=== PATIENT | male | born 1985 | race Caucasian/White ===

== ENCOUNTER 2017-02-23 17:58 | Emergency (ER) | payer OTHER ==
[~2017-02-23] VITALS: Ht 182.9 cm; Wt 122.5 kg
[~2017-02-23 17:58] MED LIST: ADVAIR 250-501 EACH IH; PROAIR HFA8.5 GM; ZANTAC 150MG T150 M1 PO; ZPAK PO
[2017-02-23 18:18] LABS: URINE BILIRUBIN NEGATIVE (Negative); URINE BLOOD NEGATIVE (Negative); URINE COLOR YELLOW; URINE GLUCOSE-RANDOM* NEGATIVE (Negative); URINE KETONES NEGATIVE (Negative); URINE NITRITE NEGATIVE (Negative); URINE PROTEIN (DIPSTICK) NEGATIVE (Negative); URINE SPECIFIC GRAVITY 1.025 (1.003-1.035); URINE UROBILINOGEN 0.2 E.U./dl (0.2-1.0)
[2017-02-23] MEDS ORDERED: NAPROSYN500 MG PO (19:35)
[2017-02-23] MEDS ORDERED: NORFLEX100 MG PO (19:35)
[2017-02-23 20:05] VITALS: BP 109/55
== END 2017-02-23 20:09 | disposition home or self-care (01) ==
LOC: ER 17:58
PROVIDERS: Physician Assistant
DX: M54.6 Pain in thoracic spine (principal); J45.909 Unspecified asthma, uncomplicated; K21.9 Gastro-esophageal reflux disease without esophagitis; Z88.0 Allergy status to penicillin

== ENCOUNTER 2017-03-06 18:59 | Emergency (ER) | payer OTHER ==
[~2017-03-06] VITALS: Ht 182.9 cm; Wt 122.5 kg
[~2017-03-06 18:59] MED LIST changes: +NAPROSYN500 MG PO; +NORFLEX100 MG PO
[2017-03-06 19:01] VITALS: BP 128/78
[2017-03-06] MEDS ORDERED: NORFLEX100 MG PO (19:35)
[2017-03-06] MEDS ORDERED: NORCO 5-325 TA1 EACH PO (19:35)
[2017-03-06] MEDS ORDERED: SENOKOT-S1 TA1 PO (19:35)
== END 2017-03-06 19:57 | disposition home or self-care (01) ==
LOC: ER 18:59
DX: S29.012A Strain of muscle and tendon of back wall of thorax, initial encounter (principal); K21.9 Gastro-esophageal reflux disease without esophagitis; J45.909 Unspecified asthma, uncomplicated; F10.99 Alcohol use, unspecified with unspecified alcohol-induced disorder; Z88.0 Allergy status to penicillin; V89.2XXA Person injured in unspecified motor-vehicle accident, traffic, initial encounter; Y93.89 Activity, other specified; Y92.89 Other specified places as the place of occurrence of the external cause; Y99.8 Other external cause status

== ENCOUNTER 2017-03-23 10:02 | Emergency (ER) | payer OTHER ==
[~2017-03-23] VITALS: Ht 182.9 cm; Wt 122.5 kg
[~2017-03-23 10:02] MED LIST changes: +NORCO 5-325 TA1 EACH PO; +SENOKOT-S1 TA1 PO
[2017-03-23 10:22] LABS: URINE BILIRUBIN NEGATIVE (Negative); URINE BLOOD NEGATIVE (Negative); URINE COLOR YELLOW; URINE GLUCOSE-RANDOM* NEGATIVE (Negative); URINE KETONES NEGATIVE (Negative); URINE NITRITE NEGATIVE (Negative); URINE PROTEIN (DIPSTICK) NEGATIVE (Negative); URINE UROBILINOGEN 0.2 E.U./dl (0.2-1.0)
[2017-03-23 10:37] LABS: ABSOLUTE NEUTROPHILS 5.5 thou/uL (1.4-8.2); BASOPHILS 0.6 % (0.0-2.0); EOSINOPHILS 5.2 % (0.0-3.0); HEMOGLOBIN 15.3 gm/dL (14.0-18.0); LYMPHOCYTES 19.4 % (24.0-44.0); MCH 30.9 pg (26.0-34.0); MCHC 35.6 g/dL (28.0-37.0); MCV 86.8 fL (80.0-100.0); MONOCYTES 7.3 % (1.0-8.0); PLATELET COUNT 211 thou/uL (150-400); POLYS 67.5 % (36.0-66.0); RBC 4.96 mil/uL (4.50-6.00); RDW 12.8 % (10.5-14.5); WBC 8.2 thou/uL (4.0-11.0)
[2017-03-23 10:40] LABS: MANUAL DIFF NO
[2017-03-23 10:43] LABS: CALCIUM 9.1 mg/dL (8.5-10.1); CREATININE 1.2 mg/dL (0.7-1.3); POTASSIUM 4.1 mmol/L (3.5-5.1)
[2017-03-23 10:48] LABS: ALBUMIN 3.6 g/dL (3.4-5.0); TOTAL BILIRUBIN 0.2 mg/dL (<0.1-1.0); TOTAL PROTEIN 7.7 g/dL (6.4-8.2)
[2017-03-23] MEDS ORDERED: NAPROSYN500 MG PO (11:22)
[2017-03-23] MEDS ORDERED: PHENERGAN 25 MG25 M1 PO (11:22)
[2017-03-23] MEDS ORDERED: NORFLEX100 MG PO (11:22)
[2017-03-23 11:49] VITALS: BP 114/71
== END 2017-03-23 12:52 | disposition home or self-care (01) ==
LOC: ER 10:02
PROVIDERS: Physician Assistant
DX: N28.1 Cyst of kidney, acquired (principal); R11.0 Nausea; K21.9 Gastro-esophageal reflux disease without esophagitis; J45.909 Unspecified asthma, uncomplicated; F10.99 Alcohol use, unspecified with unspecified alcohol-induced disorder; Z88.0 Allergy status to penicillin

== ENCOUNTER 2017-10-14 15:23 | Emergency (ER) | payer OTHER ==
[~2017-10-14] VITALS: Ht 182.9 cm; Wt 122.5 kg
[~2017-10-14 15:23] MED LIST changes: +PHENERGAN 25 MG25 M1 PO
[2017-10-14 16:24] VITALS: BP 133/78
[2017-10-14] MEDS ORDERED: TRAMADOL 50 MG50 MG PO (16:32)
[2017-10-14] MEDS ORDERED: FLEXERIL PO (16:32)
== END 2017-10-14 16:57 | disposition home or self-care (01) ==
LOC: ER 15:23
DX: M54.9 Dorsalgia, unspecified (principal); Z88.0 Allergy status to penicillin; J45.909 Unspecified asthma, uncomplicated; K21.9 Gastro-esophageal reflux disease without esophagitis

== ENCOUNTER 2017-10-16 10:48 | Emergency (ER) | payer OTHER ==
[~2017-10-16] VITALS: Ht 182.9 cm; Wt 122.5 kg
[~2017-10-16 10:48] MED LIST changes: +FLEXERIL PO; +TRAMADOL 50 MG50 MG PO
[2017-10-16 10:49] VITALS: BP 121/71
[2017-10-16] MEDS ORDERED: MOBIC15 MG PO (11:14)
== END 2017-10-16 11:53 | disposition home or self-care (01) ==
LOC: ER 10:48
DX: S40.021A Contusion of right upper arm, initial encounter (principal); S20.212A Contusion of left front wall of thorax, initial encounter; K21.9 Gastro-esophageal reflux disease without esophagitis; J45.909 Unspecified asthma, uncomplicated; Z88.0 Allergy status to penicillin; V89.2XXA Person injured in unspecified motor-vehicle accident, traffic, initial encounter; Y93.89 Activity, other specified; Y92.89 Other specified places as the place of occurrence of the external cause; Y99.8 Other external cause status

== ENCOUNTER 2018-02-20 18:45 | Emergency (ER) | payer OTHER ==
[~2018-02-20] VITALS: Ht 241.3 cm; Wt 107.5 kg
--- NOTE | ~2018-02-20 | HC ---
[facility] [place] [address] CONSULTATION Name: TIM PARK Room #: DEP Connie#: [id number] Admission: 02/20/18 Attend Phys: Discharge: 02/20/18 Date of : 89 Report #: [id number] THIS REPORT FOR: //name// CC: Frank Oviedo DATE OF SERVICE: 02/20/2018 HISTORY OF PRESENT ILLNESS: The patient is a 32-year-old male who I have been asked to see for further evaluation of food bolus obstruction and disimpaction. He has a history of eosinophilic esophagitis. MEDICATIONS: Include Prilosec. FAMILY HISTORY AND SOCIAL HISTORY: Noncontributory. REVIEW OF SYSTEMS: Negative for weight loss, weakness or fatigue. He denies head, eyes, ears, nose or throat complaints. Denies chest pain, chest palpitation, chest pressure, cough, shortness of breath, wheezing, genitourinary, musculoskeletal or neuropsychiatric complaints otherwise. PHYSICAL EXAMINATION: GENERAL: The patient is afebrile. VITAL SIGNS: Stable. HEENT: Nonicteric. NECK: No JVD, thyromegaly or bruits. CARDIOVASCULAR: Regular. LUNGS: Clear. ABDOMEN: Soft, nondistended, nontender, normoactive bowel sounds. No hepatosplenomegaly. No stigmata of chronic liver disease. No abnormal masses or bruits. EXTREMITIES: Not examined. NEUROLOGIC: Not performed. RECTAL: Deferred. PERTINENT LABORATORY DATA: None. IMPRESSION: 1. Food bolus obstruction. 2. Eosinophilic esophagitis. PLAN: [facility] [address] [place] [address] CONSULTATION Name: TIM PARK Room #: [facility] Connie#: [id number] Admission: 02/20/18 Attend Phys: Discharge: 02/20/18 Date of : 89 Report #: [id number] 1. EGD with food bolus disimpaction. 2. Further medications based on findings. <ELECTRONICALLY SIGNED> By: Frank Delgado MD 02/24/18 1013 [id number] [id number] Mike Ventura MD /nt
--- NOTE | ~2018-02-20 | O ---
[facility] [place] [address] OPERATIVE REPORT Name: TIM PARK Room #: DEP [facility]#: [id number] Admission: 02/20/18 Attend Phys: Discharge: 02/20/18 Date of : 89 Report #: [id number] THIS REPORT FOR: //name// CC: Frank Oviedo DATE OF SERVICE: 02/20/2018 SURGEON: Mike Ventura MD PREOPERATIVE DIAGNOSIS: Food bolus obstruction. POSTOPERATIVE DIAGNOSIS: See below. ANESTHESIA USED: See anesthesia notes. NAME OF THE PROCEDURE PERFORMED: EGD limited with food bolus disimpaction. INDICATION FOR THE PROCEDURE: As above. FINDINGS: 1. Food bolus impaction. 2. Incomplete upper endoscopy secondary to nonfasting status. DESCRIPTION OF THE PROCEDURE: The risks and benefits of the procedure were explained in detail prior to MAC anesthesia. Next, the patient was placed in left lateral decubitus position. The tip of the Olympus video endoscope was advanced into the oropharynx, esophagus into the distal aspect of the esophagus where a large food bolus was encountered. Using a Hawley retrieval net, the food bolus was removed. Findings consistent with eosinophilic esophagitis were present with mild narrowing throughout the entire esophagus and at the distal aspect. The rest of the endoscopy was not performed secondary to nonfasting status. The patient tolerated the procedure well and was discharged in recovery. IMPRESSION: 1. Food bolus impaction (removed). 2. Eosinophilic esophagitis. PLAN: 1. PPI daily. [facility] [address] [place] [address] OPERATIVE REPORT Name: TIM PARK Room #: DEP JUAN Rosales#: [id number] Admission: 02/20/18 Attend Phys: Discharge: 02/20/18 Date of : 89 Report #: [id number] 2. Pulmicort mix 1 with 5 b.i.d. as directed. 3. Follow up with Dr. Delgado in 1 to 2 weeks. <ELECTRONICALLY SIGNED> By: Frank Delgado MD 02/24/18 1013 2142 0034 Mike Ventura MD /nt
[~2018-02-20 18:45] MED LIST changes: +MOBIC15 MG PO
[2018-02-20] MEDS ORDERED: ADVAIR HFA 230M12 GM INH (19:06)
[2018-02-20 21:06] VITALS: BP 100/64
== END 2018-02-20 23:00 | disposition home or self-care (01) ==
LOC: ER 18:45
DX: R10.9 Unspecified abdominal pain (principal); R13.14 Dysphagia, pharyngoesophageal phase; K21.9 Gastro-esophageal reflux disease without esophagitis; J45.909 Unspecified asthma, uncomplicated
CPT/HCPCS: 62110; 62900

== ENCOUNTER 2018-03-21 12:39 | Emergency (ER) | payer OTHER ==
[~2018-03-21] VITALS: Ht 182.9 cm; Wt 104.3 kg
[~2018-03-21 12:39] MED LIST changes: +ADVAIR HFA 230M12 GM INH
[2018-03-21] MEDS ORDERED: TRAMADOL 50 MG50 MG PO (14:25)
[2018-03-21 14:39] VITALS: BP 127/75
== END 2018-03-21 14:43 | disposition home or self-care (01) ==
LOC: ER 12:39
DX: S46.912A Strain of unspecified muscle, fascia and tendon at shoulder and upper arm level, left arm, initial encounter (principal); K21.9 Gastro-esophageal reflux disease without esophagitis; J45.909 Unspecified asthma, uncomplicated; Z88.0 Allergy status to penicillin; Z88.5 Allergy status to narcotic agent; X58.XXXA Exposure to other specified factors, initial encounter; Y93.89 Activity, other specified; Y92.89 Other specified places as the place of occurrence of the external cause; Y99.8 Other external cause status

== ENCOUNTER 2018-08-15 08:55 | Emergency (ER) | payer OTHER ==
[~2018-08-15] VITALS: Ht 182.9 cm; Wt 108.9 kg
--- NOTE | ~2018-08-15 | EKG ---
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
[2018-08-15] MEDS ORDERED: VENTOLIN HFA 1818 GM INH (09:06)
[2018-08-15] MEDS ORDERED: BREO ELLIPTA 11 EACH INH (09:07)
[2018-08-15] MEDS ORDERED: PRILOSEC 20 MG20 MG PO (09:48)
[2018-08-15] MEDS ORDERED: TRAMADOL 50 MG50 MG PO (09:48)
[2018-08-15] MEDS ORDERED: PREDNISONE 20 M20 MG PO (09:48)
[2018-08-15 10:02] VITALS: BP 134/60
== END 2018-08-15 10:15 | disposition home or self-care (01) ==
LOC: ER 08:55
DX: M94.0 Chondrocostal junction syndrome [Tietze] (principal); K20.9 Esophagitis, unspecified; R13.10 Dysphagia, unspecified; K21.9 Gastro-esophageal reflux disease without esophagitis; J45.909 Unspecified asthma, uncomplicated; Z88.0 Allergy status to penicillin; Z88.8 Allergy status to other drugs, medicaments and biological substances

== ENCOUNTER 2020-06-05 08:40 | Emergency (ER) | payer OTHER ==
[~2020-06-05] VITALS: Ht 182.9 cm; Wt 111.1 kg
[~2020-06-05 08:40] MED LIST changes: +BREO ELLIPTA 11 EACH INH; +IBUPROFEN 600600 M1 PO; +PREDNISONE 20 M20 MG PO; +PRILOSEC 20 MG20 MG PO; +VENTOLIN HFA 1818 GM INH
[2020-06-05 09:35] LABS: ABSOLUTE NEUTROPHILS 5.6 thou/uL (1.4-8.2); BASOPHILS 0.8 % (0.0-2.0); EOSINOPHILS 6.5 % (0.0-3.0); HEMATOCRIT 43.9 % (42.0-52.0); HEMOGLOBIN 15.5 gm/dL (14.0-18.0); LYMPHOCYTES 16.8 % (24.0-44.0); MCH 31.5 pg (26.0-34.0); MCHC 35.2 g/dL (28.0-37.0); MCV 89.3 fL (80.0-100.0); MONOCYTES 7.1 % (1.0-8.0); PLATELET COUNT 198 thou/uL (150-400); POLYS 68.8 % (36.0-66.0); RBC 4.92 mil/uL (4.50-6.00); RDW 12.7 % (10.5-14.5); WBC 8.1 thou/uL (4.0-11.0)
[2020-06-05 09:42] LABS: CALCIUM 8.9 mg/dL (8.5-10.1); CREATININE 1.1 mg/dL (0.7-1.3); POTASSIUM 3.9 mmol/L (3.5-5.1)
[2020-06-05 10:20] VITALS: BP 118/68
--- NOTE | 2020-06-05 14:45 | EKG ---
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: DENILSON ITAFAVIOLA : 1985 Requested By: Gabriel Raphael Order Number: [id number] MD: Favian Ge Measurements Intervals [place] Rate: 62 P: 43 AL: 127 QRS: 32 QRSD: 90 T: 44 QT: 379 QTc: 385 Interpretive Statements Sinus rhythm RSR' in V1 or V2, probably normal variant ST elev, probable normal early repol pattern Compared to ECG 08/15/2018 09:17:02 Sinus bradycardia no longer present Electronically Signed On 06-05-2020 14:44:52 CDT by Favian Ge [email or web address] <ELECTRONICALLY SIGNED> By: Favian Ge MD, [facility] 06/05/20 1444 4 4 Favian Ge MD, [facility] /EPI
== END 2020-06-05 10:20 | disposition home or self-care (01) ==
LOC: ER 08:40
PROVIDERS: Emergency Medicine
DX: R00.2 Palpitations (principal); R53.83 Other fatigue; K21.9 Gastro-esophageal reflux disease without esophagitis; J45.909 Unspecified asthma, uncomplicated; E66.9 Obesity, unspecified; Z68.33 Body mass index [BMI] 33.0-33.9, adult; Z79.899 Other long term (current) drug therapy; Z88.0 Allergy status to penicillin; Z88.6 Allergy status to analgesic agent; Z88.8 Allergy status to other drugs, medicaments and biological substances

== ENCOUNTER 2020-09-26 11:08 | Emergency (ER) | payer OTHER ==
[~2020-09-26] VITALS: Ht 182.9 cm; Wt 117.9 kg
[2020-09-26 12:39] LABS: ABSOLUTE NEUTROPHILS 5.3 thou/uL (1.4-8.2); BASOPHILS 0.5 % (0.0-2.0); EOSINOPHILS 12.6 % (0.0-3.0); HEMATOCRIT 44.7 % (42.0-52.0); HEMOGLOBIN 15.6 gm/dL (14.0-18.0); LYMPHOCYTES 22.9 % (24.0-44.0); MCH 30.9 pg (26.0-34.0); MCHC 34.9 g/dL (28.0-37.0); MCV 88.6 fL (80.0-100.0); MONOCYTES 7.1 % (1.0-8.0); PLATELET COUNT 231 thou/uL (150-400); POLYS 56.9 % (36.0-66.0); RBC 5.05 mil/uL (4.50-6.00); RDW 12.5 % (10.5-14.5); WBC 9.3 thou/uL (4.0-11.0)
[2020-09-26 13:14] LABS: CALCIUM 9.9 mg/dL (8.5-10.1); CREATININE 1.3 mg/dL (0.7-1.3); POTASSIUM 4.5 mmol/L (3.5-5.1)
[2020-09-26 13:21] LABS: ALBUMIN 3.4 g/dL (3.4-5.0); TOTAL BILIRUBIN 0.3 mg/dL (0.2-1.0)
[2020-09-26] MEDS ORDERED: PREDNISONE 10 M10 M1 PO (14:23)
[2020-09-26] MEDS ORDERED: ZPAK PO (14:23)
[2020-09-26] MEDS ORDERED: ALBUTEROL2.5 MG/31 INH (15:39)
[2020-09-26 15:49] VITALS: BP 106/61
== END 2020-09-26 15:49 | disposition home or self-care (01) ==
LOC: ER 11:08
PROVIDERS: Physician Assistant
DX: J45.901 Unspecified asthma with (acute) exacerbation (principal); K21.9 Gastro-esophageal reflux disease without esophagitis; Z79.1 Long term (current) use of non-steroidal anti-inflammatories (NSAID); Z79.899 Other long term (current) drug therapy; Z88.0 Allergy status to penicillin; Z88.5 Allergy status to narcotic agent; Z20.828 Contact with and (suspected) exposure to other viral communicable diseases

== ENCOUNTER 2020-11-03 22:52 | Emergency (ER) | payer OTHER ==
[~2020-11-03] VITALS: Ht 182.9 cm; Wt 117.9 kg
[~2020-11-03 22:52] MED LIST changes: +ALBUTEROL2.5 MG/31 INH; +PREDNISONE 10 M10 M1 PO
[2020-11-03] MEDS ORDERED: WIXELA 250-501 EACH INH (23:19)
[2020-11-03] MEDS ORDERED: PREDNISONE 20 M20 M1 PO (23:19)
[2020-11-03 23:24] VITALS: BP 125/63
[2020-11-03] MEDS ORDERED: DOXYCYCLINE 10100 MG PO (23:35)
== END 2020-11-03 23:30 | disposition home or self-care (01) ==
LOC: ER 22:52
DX: J45.901 Unspecified asthma with (acute) exacerbation (principal); K21.9 Gastro-esophageal reflux disease without esophagitis; Z79.899 Other long term (current) drug therapy; Z88.0 Allergy status to penicillin; Z88.5 Allergy status to narcotic agent

== ENCOUNTER 2020-11-19 08:10 | Emergency (ER) | payer OTHER ==
[~2020-11-19] VITALS: Ht 182.9 cm; Wt 120.2 kg
[~2020-11-19 08:10] MED LIST changes: +DOXYCYCLINE 10100 MG PO; +PREDNISONE 20 M20 M1 PO; +WIXELA 250-501 EACH INH
[2020-11-19] MEDS ORDERED: PREDNISONE 10 M10 MG PO (10:33)
[2020-11-19 10:38] VITALS: BP 133/74
== END 2020-11-19 10:40 | disposition home or self-care (01) ==
LOC: ER 08:10
DX: J45.901 Unspecified asthma with (acute) exacerbation (principal); K21.9 Gastro-esophageal reflux disease without esophagitis; Z79.899 Other long term (current) drug therapy; Z88.0 Allergy status to penicillin; Z88.5 Allergy status to narcotic agent; Z20.822 Contact with and (suspected) exposure to COVID-19

== ENCOUNTER 2021-04-04 17:35 | Emergency (ER) | payer BC, OTHER ==
[~2021-04-04] VITALS: Ht 182.9 cm; Wt 124.7 kg
[~2021-04-04 17:35] MED LIST changes: +PREDNISONE 10 M10 MG PO
[2021-04-04 18:23] LABS: URINE BILIRUBIN NEGATIVE (Negative); URINE BLOOD NEGATIVE (Negative); URINE CLARITY CLEAR; URINE COLOR YELLOW; URINE GLUCOSE-RANDOM* NEGATIVE (Negative); URINE KETONES NEGATIVE (Negative); URINE LEUKOCYTES-REFLEX NEGATIVE (Negative); URINE NITRITE-REFLEX NEGATIVE (Negative); URINE PROTEIN (DIPSTICK) NEGATIVE (Negative); URINE SPECIFIC GRAVITY >= 1.030 (1.005-1.035); URINE UROBILINOGEN 0.2 E.U./dl (0.2-1.0)
[2021-04-04] MEDS ORDERED: OMEPRAZOLE40 MG PO (18:24)
[2021-04-04 18:34] LABS: ABSOLUTE NEUTROPHILS 6.5 thou/uL (1.4-8.2); BASOPHILS 0.8 % (0.0-2.0); EOSINOPHILS 7.8 % (0.0-3.0); HEMATOCRIT 42.8 % (42.0-52.0); HEMOGLOBIN 14.7 gm/dL (14.0-18.0); LYMPHOCYTES 24.4 % (24.0-44.0); MCH 30.6 pg (26.0-34.0); MCHC 34.3 g/dL (28.0-37.0); MCV 89.1 fL (80.0-100.0); MONOCYTES 7.5 % (1.0-8.0); PLATELET COUNT 232 thou/uL (150-400); POLYS 59.5 % (36.0-66.0); RBC 4.81 mil/uL (4.50-6.00); RDW 12.7 % (10.5-14.5); WBC 10.9 thou/uL (4.0-11.0)
[2021-04-04 18:42] LABS: ANION GAP 12 mmol/L (7-16); BUN 14 mg/dL (7-18); CALCIUM 8.9 mg/dL (8.5-10.1); CHLORIDE 103 mmol/L (98-107); CO2 27 mmol/L (21-32); CREATININE 1.5 mg/dL (0.7-1.3); GLUCOSE 105 mg/dL (74-106); POTASSIUM 3.8 mmol/L (3.5-5.1); SODIUM 142 mmol/L (136-145)
[2021-04-04 18:47] LABS: ALBUMIN 3.8 g/dL (3.4-5.0); DIRECT BILIRUBIN < 0.1 mg/dL (<0.1-0.2); LIPASE 86 U/L (73-393); SGOT 31 U/L (15-37); SGPT 75 U/L (16-63); TOTAL BILIRUBIN 0.3 mg/dL (0.2-1.0); TOTAL PROTEIN 7.2 g/dL (6.4-8.2)
[2021-04-04 20:41] VITALS: BP 127/72
== END 2021-04-04 20:41 | disposition home or self-care (01) ==
LOC: ER 17:35
PROVIDERS: Nurse Practitioner
DX: R10.9 Unspecified abdominal pain (principal); R60.0 Localized edema; R11.0 Nausea; K21.9 Gastro-esophageal reflux disease without esophagitis; J45.909 Unspecified asthma, uncomplicated; E66.9 Obesity, unspecified; Z68.37 Body mass index [BMI] 37.0-37.9, adult; Z79.899 Other long term (current) drug therapy; Z88.0 Allergy status to penicillin; Z88.6 Allergy status to analgesic agent